=== PATIENT | male | born 1960 | race Caucasian/White ===

== ENCOUNTER 2016-09-12 14:43 | Emergency (ER) | payer MEDICARE, OTHER ==
[2016-09-12 16:11] LABS: Hematocrit 34.3 % (42.0-52.0); Hemoglobin 11.9 gm/dL (13.5-18.0); Mean Corpuscular Hemoglobin 29.8 pg (27-31); Mean Corpuscular Hgb Conc 34.7 g/dl (32-36); Mean Platelet Volume 10.9 fl (6.0-9.5); Neutrophil # 4.7 K/mm3 (1.3-6.0); Neutrophil % 63.7 % (42-75.0); Platelet Count 160 K/mm3 (150-450); Red Blood Count 3.99 M/mm3 (4.7-6.0); Red Cell Distribution Width 12.1 % (11.5-14.0); White Blood Count 7.4 K/mm3 (4.0-10.5)
[2016-09-12] MEDS ORDERED: INSULIN REGULAR, HUMAN 100 UNITS/ML VIAL SC ONE (16:20)
[2016-09-12 16:22] LABS: Hemoglobin A1C 11.8 % (4.00-6.0)
[2016-09-12 16:24] LABS: Urine Bilirubin Negative (NEGATIVE); Urine Blood Negative /ul (NEGATIVE); Urine Ketone Negative (NEGATIVE); Urine Nitrite Negative (NEGATIVE); Urine Protein Negative (NEGATIVE); Urine Specific Gravity 1.015 SP.GR. (1.005-1.030); Urine Urobilinogen Normal (NORMAL); Urine pH 5.5 pH (5.0-7.0)
[2016-09-12 16:29] LABS: ALT 25 U/L (19-67); AST 15 U/L (0-48); Albumin * 3.1 gm/dl (3.4-5.0); Alkaline Phosphatase * 89 U/L (50-170); Anion Gap 12.8 mmol/L (6.8-13.8); Bilirubin, Total 0.3 mg/dL (0.0-1.1); Blood Urea Nitrogen 22 mg/dL (6-23); Ca. Corrected For Albumin 8.8 mg/dL (8.4-10.2); Calcium * 8.4 mg/dL (7.9-10.9); Carbon Dioxide 28.4 mmol/L (24-32.6); Chloride 103 mmol/L (97-106); Glucose * 340 mg/dL (70-110); Potassium 4.2 mmol/L (3.4-4.6); Sodium 140 mmol/L (132-142); Total Protein 6.7 gm/dL (6.2-8.2)
[2016-09-12] MEDS ORDERED: INSULIN REGULAR, HUMAN 100 UNITS/ML VIAL ONE (16:35)
[2016-09-12] MEDS ORDERED: NORMAL SALINE 1,000 ML IV ONE (16:35)
[2016-09-12 16:39] LABS: Urine Appearance Clear; Urine Color Yellow
[2016-09-12 16:40] LABS: Urine Bacteria None Seen; Urine RBC None Seen /hpf (0-5); Urine WBC None Seen /hpf (0-5)
--- OUTSIDE RECORDS SUMMARY | 2016-09-12 16:56 | XMS REPORT | Continuity of Care Document ---
:1960 Author Organization [place] [address] Care Team Providers Name Role Phone Bryan Blancas V Primary Care Provider [phone] Source Comments This disclosure is being made pursuant to the [employer] program and maynot contain all information available regarding this patient.[facility] Active Allergies and Adverse Reactions No Known Allergies Current Medications Be aware that medications may not be up to date as of this document. Alwaysverify current medications with the patient. Prescription Sig. Disp. Refills Start Date End Date Status atorvastatin Take 20 mg by 07/21/2016 Active (LIPITOR) 20 MG mouth daily. tablet citalopram (CELEXA) Take 40 mg by 1 06/03/2016 Active 40 MG tablet mouth daily. esomeprazole Take 40 mg by 1 07/14/2016 Active (NEXIUM) 40 MG mouth 2 (two) capsule times daily. FLUoxetine (PROZAC) Take 1 capsule 05/30/2016 Active 20 MG capsule by mouth daily. glipiZIDE Take 2.5 mg by 07/09/2016 Active (GLUCOTROL) 5 MG mouth every tablet morning. lisinopril Take 2.5 mg by 07/10/2016 Active (PRINIVIL,ZESTRIL) mouth daily. 2.5 MG tablet losartan (COZAAR) 100 mg every 2 07/09/2016 Active 50 MG tablet morning. metoprolol tartrate Take 50 mg by 2 07/21/2016 Active (LOPRESSOR) 50 MG mouth daily. tablet CHANTIX STARTING TAKE ONE 0 06/03/2016 Active MONTH ALEIDA 0.5 MG X (0.5MG) TABLET 11 & 1 MG X 42 BY MOUTH DAILY tablet FOR 3 DAYS , THEN ONE (0.5 MG) TABLET TWO TIMES A DAY FOR 4 DAYS , THEN ONE (1MG) TABLET TWO TIMES A triamcinolone Apply 45 g 1 07/31/2016 Active (KENALOG) 0.1 % topically 2 cream (two) times daily as needed. to affected area. ALPRAZolam (XANAX) Take 1 tablet 30 tablet 0 09/03/2016 Active 0.5 MG tablet (0.5 mg total) by mouth daily as needed. traMADol (ULTRAM) Take 1 tablet 60 tablet 0 09/03/2016 Active 50 MG tablet (50 mg total) by mouth every 6 (six) hours as needed for Pain. ALPRAZolam (XANAX) Take 0.5 mg by 0 06/03/2016 Discontinued 0.5 MG tablet mouth daily as 7 needed. Active Problems No known active problems Most Recent Encounters Date Type Specialty Providers Description 09/10/2016 Orders Only Provider, Not In System 09/03/2016 Refill Family Medicine Krista Bruno, RN 08/13/2016 Orders Only Provider, Not In System 07/31/2016 Office Visit Family Medicine Bryan Blancas DO Chronic bilateral low back pain with left-sided sciatica (Primary Dx); Tick bite of buttock, initial encounter; Rash 07/31/2016 Abstract Family Medicine Sherry Herrmann, RN Social History Tobacco Use Types Packs/Day Years Used Date Current Every Day Smoker 0.25 Alcohol Use Drinks/Week oz/Week Comments No Last Filed Vital Signs Vital Sign Reading Time Taken Blood Pressure 130/78 07/31/2016 1:47 PM CDT Pulse 87 07/31/2016 1:47 PM CDT Temperature - - Respiratory Rate 16 07/31/2016 1:47 PM CDT Height 1.702 m (5' 7") 07/31/2016 1:47 PM CDT Weight 97.523 kg (215 lb) 07/31/2016 1:47 PM CDT Body Mass Index 33.67 07/31/2016 1:47 PM CDT Oxygen Saturation 98% 07/31/2016 1:47 PM CDT Plan of Care Health Maintenance Due Date Last Done Comments Lab-Lipids 1960 LAB-HgA1C 1965 Eye (Ophthalmology) Exam 1970 Foot Exam 1970 Lab-Urine Microalbumin 1970 Hepatitis C Screening 1978 Pneumococcal Medium Risk 19-64 yo (1 of 1 - PPSV23) 07/23/1979 Tetanus/Pertussis (1 - Tdap) 07/23/1979 Colonoscopy 2010 Well Adult Visit 2010 Influenza Immunization (#1) 2015 Results from Last 3 Months IR FLUORO GUIDED NEEDLE LOCALIZATION (08/26/2016)MRI LUMBAR SPINE WO CONTRAST ( 08/17/2016)XR LUMBOSACRAL SPINE 2 OR 3 VIEWS (08/12/2016)
--- OUTSIDE RECORDS SUMMARY | 2016-09-12 16:56 | XMS REPORT | Continuity of Care Document ---
:1960 Author Organization [facility] ([facility]) Address [place] [address] Phone [phone] Care Team Providers Name Role Phone Bryan Blancas Primary Care Provider [phone] Source Comments This disclosure is being made pursuant to the Care Everywhere program, applicable federal and state laws, and may not contain all informaitonavailable regarding this patient.[facility] ([facility]) Active Allergies and Adverse Reactions No Known Allergies Current Medications Prescription Sig. Disp. Refills Start Date End Date Status losartan 25 mg tablet Take 50 mg by Active mouth 2 times daily. metoPROLol tartrate 50 Take 50 mg by Active mg tablet mouth daily. glipiZIDE 5 mg tablet Take 5 mg by Active mouth daily. pregabalin (LYRICA) 150 Take 150 mg by Active mg capsule mouth 2 times daily. atorvastatin 20 mg Take 20 mg by Active tablet mouth every evening. multivitamin tablet Take 1 tablet Active by mouth daily. NIACIN (NIACINAMIDE) PO Take 500 mg by Active mouth 2 times daily. meloxicam 15 mg tablet 1 tablet as 11/08/2015 Active needed. sucralfate 1000 mg Take 1 tablet 120 tablet 3 01/02/2016 Active tablet (1,000 mg total) by mouth before meals and at bedtime. esomeprazole (NEXIUM) 40 Take 1 capsule 60 capsule 2 01/03/2016 Active mg EC capsule (40 mg total) by mouth 2 times daily. ALPRAZolam 0.5 mg tablet Take 0.5 mg by Active mouth daily. cyclobenzaprine 10 mg Take 10 mg by Active tablet mouth 3 times daily as needed. lisinopril 2.5 mg tablet Take 2.5 mg by Active mouth daily. FLUoxetine 40 mg capsule Take 40 mg by Active mouth daily. traMADol 50 mg tablet Take 50 mg by Active mouth as needed. Active Problems Problem Noted Date Chronic bilateral low back pain without sciatica 04/21/2016 S/P gastric bypass 11/27/2015 Neovascular glaucoma, right eye 02/22/2014 Severe stage glaucoma 02/22/2014 Pigment dispersion syndrome 02/22/2014 Most Recent Encounters Date Type Specialty Providers Description 07/08/2016 Telephone Med GI/Hepatology Mariann Sanchez Social History Tobacco Use Types Packs/Day Years Used Date Current Every Day Smoker Cigarettes 0.25 38 Quit: 04/26/2013 Smokeless Tobacco: Never Used Tobacco Cessation:Ready to Quit: No; Counseling Given: Yes Comments: Alcohol Use Drinks/Week oz/Week Comments No Last Filed Vital Signs Vital Sign Reading Time Taken Blood Pressure 143/73 04/21/2016 8:32 AM CONTRACTING MANAGER Pulse 66 04/21/2016 8:32 AM CONTRACTING MANAGER Temperature 35.7 C (96.3 F) 04/21/2016 8:32 AM CONTRACTING MANAGER Respiratory Rate 20 01/02/2016 11:41 AM CDT Height 1.74 m (5' 8.5") 04/21/2016 8:32 AM CONTRACTING MANAGER Weight 100.8 kg (222 lb 3.6 oz) 04/21/2016 8:32 AM CONTRACTING MANAGER Body Mass Index 33.29 04/21/2016 8:32 AM CONTRACTING MANAGER Oxygen Saturation 95% 01/02/2016 9:15 AM CDT Plan of Care Health Maintenance Due Date Last Done Comments HCV Screening 1960 Hepatitis B Vaccine (1 of 3 - Primary Series) 1960 Tdap Vaccine 07/23/1971 MMR Vaccine 1978 Td Vaccine 1978 Pneumococcal Vaccine (1 of 1 - PPSV23) 07/23/1979 Colonoscopy 2010 Prostate Cancer Screening 2010 Influenza Vaccine: Seasonal (Season Ended) 2016 Lipid Disorder Screening 12/04/2020 12/05/2015 Results from Last 3 Months Not on file
--- NOTE | 2016-09-12 18:23 | ERNOTE ---
Medical Problem HPI - Narrative Date of Service: 09/12/16 - General Chief Complaint: General Assessment Time Seen by Provider: 09/12/16 15:42 - Immun/Allergies/Home Medications Immunizations: IMMUNIZATION HX Immunizations Up to Date Yes History of Influenza Vaccine No Hx Pneumococcal Vaccination Yes Allergies/Adverse Reactions: Allergies No Known Allergies Allergy (Verified 09/12/16 14:54) Home Medications: HOME MEDICATIONS Atorvastatin Calcium [Lipitor] 20 mg PO HS 11/19/15 [Last Taken Unknown] Citalopram Hydrobromide [Celexa] 40 mg PO DAILY 11/19/15 [Last Taken Unknown] glipiZIDE [Glucotrol Xl] 2 tab PO BIDWM 11/19/15 [Last Taken Unknown] ALPRAZolam [Xanax] 0.5 mg PO DAILY PRN 09/12/16 [Last Taken Unknown] Esomeprazole Magnesium [Nexium] 40 mg PO BID 09/12/16 [Last Taken Unknown] Losartan Potassium [Cozaar] 50 mg PO DAILY 09/12/16 [Last Taken Unknown] Metoprolol Tartrate [Lopressor] 50 mg PO DAILY 09/12/16 [Last Taken Unknown] metFORMIN HCL [Metformin HCl ER] 500 mg PO DAILY 09/12/16 [Last Taken Unknown] traMADol HCL [Ultram] 50 mg PO PRN PRN 09/12/16 [Last Taken Unknown] traZODone HCL [Trazodone HCl] 50 mg PO HS 09/12/16 [Last Taken Unknown] - History of Present History Narrative: 56-year-old male presents to the emergency room for elevated blood sugars. Patient states that he had been previously diagnosed as diabetic and had gastric bypass surgery that had his diabetes had been under control with this diet exercise. Recently patient went to the doctor on Wednesday and was told that his diabetes needed to be controlled with medication. Patient was started on metformin and glipizide and today he presents to the emergency room with a blood sugar of over 400 at home. he was instructed to go to the emergency room by PCP Date (Duration): 09/13/16 Timing: constant Severity: mild Review of Systems - Review of Systems Constitutional: Present: See HPI, fatigue EYE: Present: no symptoms reported ENT: Present: no symptoms reported Respiratory: Present: no symptoms reported Cardiology: Present: no symptoms reported Gastrointestinal/Abdominal: Present: no symptoms reported Genitourinary: Present: no symptoms reported Musculoskeletal: Present: no symptoms reported Skin: Present: no symptoms reported Neurological: Present: no symptoms reported Endocrine: Present: See HPI Hematologic/Lymphatic: Present: no symptoms reported Psych: Present: no symptoms reported All Other Systems: All systems neg except as marked - Patient's Past Medical History Patient History - Medical: Diabetes Type 2, Obesity Patient History - Cardiac/Respiratory: Hypertension, Hyperlipidemia Patient History - Cancer: Skin Patient History - Surgical Procedures: EGD, Other Patient History - Other: None - Family History Father Family History - Medical: Diabetes Type 2, Other - Social History Living Situations: home Abuse History: No History of abuse Psych History: Hx of Anxiety, Hx of Depression Smoking Status: Current every day smoker Patient requests Smoking Cessation Consult: No Initiate information on Smoking Cessation: No Alcohol Use: none Drug Use: none - Immunizations Immunizations Up to Date: Yes Hx Pneumococcal Vaccination: Yes History of Influenza Vaccine: No Physical Exam - Physical Exam Narrative: Patient's physical exam is within normal limits. Blood glucose is over 400. General Appearance: Present: wd/wn, alert, no apparent distress Eye Exam: Normal inspection: bilateral Ears, Nose, Throat: Present: normal ENT inspection, normal pharynx Neck: Present: normal inspection, nontender Respiratory: Present: no respiratory distress, normal breath sounds, no accessory muscle use, chest nontender, lungs clear Cardiovascular/Chest: Present: regular rate, rhythm, no murmur, normal peripheral pulses Gastrointestinal/Abdominal: Present: normal bowel sounds, nontender, nondistended, soft Back Exam: Present: normal inspection, normal range of motion, no CVA tenderness , no vertebral tenderness Extremity Exam: Present: normal inspection, non-tender, normal range of motion, no edema Neurological Exam: Present: alert, oriented, normal mood/affect, no motor/ sensory deficits, 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 - Vital Signs Patient's Vital Signs:: I have reviewed the patient's vital signs. Vital Signs: Vital Signs 09/12/16 09/12/16 09/12/16 14:47 15:43 16:03 Temperature 36.9 C Pulse Rate 73 60 57 L Respiratory 18 16 16 Rate Blood Pressure 130/75 160/64 131/67 O2 Sat by Pulse 96 94 94 Oximetry 09/12/16 09/12/16 16:44 17:02 Temperature Pulse Rate 54 L 52 L Respiratory 14 16 Rate Blood Pressure 136/69 133/69 O2 Sat by Pulse 96 95 Oximetry - Progress/Reassessment Chief Complaint: General Assessment Progress:: Improved Plan - Plan Plan: She was given subcutaneous insulin was subsequently brought his blood sugars back count within normal limits. After speaking with the on-call doctor at his physician's office and was advised to put him on a sliding scale insulin will see him on Wednesday morning and adjust his insulin accordingly. Patient is aware of this is also where he can return to the emergency room at anytime as needed for hyper or hypoglycemia. Has a previous history of using insulin so I therefore I feel confident in his ability to give himself insulin and monitor his blood sugars accordingly. Patient's girlfriend of 6 years is also an PARA EDUCATOR and she feels very confident her ability to monitor his blood sugars at this time. Departure - Departure Clinical Impression: Hyperglycemia due to type 2 diabetes mellitus Qualifiers: Diabetes mellitus fdc insulin use: unspecified fdc insulin use status Qualified Code(s): E11.65 - Type 2 diabetes mellitus with hyperglycemia Disposition: Home Follow Up Needed Condition: Good Instructions: Hyperglycemia, [id number], Postprandial Glucose Test, How to Avoid Diabetes Problems, Type 2 Diabetes Mellitus, Adult, [id number] Additional Instructions: Continue any previous home medications as directed. Follow-up with your primary care provider appointment on Wednesday. Follow insulin instructions carefully. Return to the emergency room if you have any change in condition. Referrals: Khushbu Reardon ARNP [Primary Care Provider] -
[2016-09-12 18:45] VITALS: BP 150/70
== END 2016-09-12 18:51 | disposition home or self-care (01) ==
LOC: ER 14:43
DX: E11.65 Type 2 diabetes mellitus with hyperglycemia (principal); I10 Essential (primary) hypertension; E78.5 Hyperlipidemia, unspecified; Z85.828 Personal history of other malignant neoplasm of skin; Z72.0 Tobacco use